=== PATIENT | male | born 1960 | race Caucasian/White ===

== ENCOUNTER 2018-02-14 22:05 | Observation (INO) | payer OTHER ==
--- NOTE | 2018-02-14 22:22 | EDPHY ---
H & P Stated Complaint: anxious, sob, concerned about BP Time Seen by Provider: 02/14/18 22:22 HPI/ROS: HPI CHIEF COMPLAINT: Anxiety, high blood pressure, SOB, Some "chest tightness" HISTORY OF PRESENT ILLNESS: This is a 57-year-old male, presents emergency room by private vehicle feeling anxious. He states he suffers from anxiety and panic attacks. Patient presents emergency room stating that he feels very anxious. He has been anxious all day. He did take lorazepam. He denies any chest pain. But states at times he has SOB. Also states at times, but not currently has had some chest tightness. Does complain of some shortness of breath. No pleuritic pain no recent illness no fever. He took his blood pressure tonight noticed that was high in the 160s this concerned him made him more anxious so decided come the emergency room. Patient states he does not typically have hypertension Upon arrival to the emergency room he is more calm. He states he feels better is blood pressure is 130/90. Heart rate 67, pulse ox 96% on room air. He does not have any chest pain or shortness of breath. Past Medical History: Anxiety and panic attacks. Past Surgical History: No recent surgery Social History: Denies drugs alcohol tobacco. Occasional marijuana use. Family History: Denies ROS REVIEW OF SYSTEMS: 10 Systems were reviewed and negative with the exception of the elements mentioned in the history of present illness. Exam Constitutional anxious triage nursing summary reviewed, vital signs reviewed, awake/alert. Eyes normal conjunctivae and sclera, EOMI, PERRLA. HENT normal inspection, atraumatic, moist mucus membranes, no epistaxis, neck supple/ no meningismus, no raccoon eyes. Respiratory clear to auscultation bilaterally, normal breath sounds, no respiratory distress, no wheezing. Cardiovascular rate normal, regular rhythm, no murmur, no edema, distal pulses normal. Gastrointestinal soft, non-tender, no rebound, no guarding, normal bowel sounds, no distension, no pulsatile mass. Genitourinary no CVA tenderness. Musculoskeletal no midline vertebral tenderness, full range of motion, no calf swelling, no tenderness of extremities, no meningismus, good pulses, neurovascularly intact. Skin pink, warm, & dry, no rash, skin atraumatic. Neurologic awake, alert and oriented x 3, AAOx3, moves all 4 extremities equally, motor intact, sensory intact, CN II-XII intact, normal cerebellar, normal vision, normal speech. Psychiatric anxious Heme/Lymph/Immune no lymphadenopathy. Differential Diagnosis: Includes but is not limited to in a particular order acute anxiety, panic attack, electrolyte disturbance, dehydration, pneumonia, pneumothorax, CHF, hypertensive urgency Medical Decision Making: Plan for this patient IV establishment, IV fluid bolus , IV Ativan for anxiety, EKG basic blood work chest x-ray re-evaluate. Troponin. Re-evaluation: EKG interpretation by me on record in [facility] system. Impression time of EKG 2234 sinus rhythm rate of 67 I do not appreciate acute ischemia. EKG was reading minimal ST elevation in inferior leads which I disagree with. Patient does not have chest pain. EKG interpretation by me on record in [facility] system. Impression time of EKG 2253: Sinus rhythm rate of 66, no acute ischemia. Minimal ST elevation inferior leads which again I disagree with. I had Dr. Nichols, reviewed these EKGs. The patient does not have any chest pain. He has reviewed these EKGs in feels that this is not an acute ischemic event. No ST elevation. EKG interpretation by me on record in [facility] system. Impression time of EKG 2309 sinus rhythm rate of 68 without any acute ischemia. Troponin noted to be-0.00. ED x-ray chest one view negative for acute cardiopulmonary disease. A 2nd troponin 0.00. Third EKG perform time of EKG 2:52 a.m., sinus rhythm 53, No significant St elevation, possible very chalo < 0.5 mm lead 2. Very subtle. No other acute ischemic change. These EKGs have been reviewed by Dr. Nichols, would not activate cardiac catheterization. Does not feel this is ST elevation. Plan for hospital admission observation echo/stress overnight. I have asked the hospitalist service Dr. Garcia to admit for further eval/ obs 0313: This time patient has no chest pain. Resting comfortably. Vital signs stable. Blood pressure improved with Ativan. 0313: Patient resting comfortably chest pain-free. Source: Patient - Personal History Current Tetanus Diphtheria and Acellular Pertussis (TDAP): Unsure - Medical/Surgical History Hx Asthma: No Hx Chronic Respiratory Disease: No Hx Diabetes: No Hx Cardiac Disease: No Hx Renal Disease: No Hx Cirrhosis: No Hx Alcoholism: No Hx HIV/AIDS: No Hx Splenectomy or Spleen Trauma: No Other PMH: anxiety - Social History Smoking Status: Never smoked Constitutional: Initial Vital Signs Temperature (C) 36.7 C 02/14/18 22:09 Heart Rate 92 02/14/18 22:09 Respiratory Rate 20 02/14/18 22:09 Blood Pressure 170/105 H 02/14/18 22:09 O2 Sat (%) 98 02/14/18 22:09 O2 Delivery Mode Room Air Allergies/Adverse Reactions: No Known Allergies Allergy (Unverified 02/14/18 22:08) Home Medications: Medication Instructions Recorded LORazepam [Ativan (*)] 0 mg PO Q6-8PRN PRN 09/15/14 Sertraline HCl 09/15/14 Medical Decision Making - Diagnostics Imaging Results: Imaging Impressions Chest X-Ray 02/14/18 22:31 Impression: 1. No active cardiopulmonary disease seen. - Data Points Laboratory Results: Laboratory Results 02/14/18 22:39 02/14/18 22:39 02/15/18 02/14/18 02/14/18 02:46 22:43 22:39 WBC RBC Hgb Hct MCV MCH MCHC RDW Plt Count MPV Neut % (Auto) Lymph % (Auto) [place] % (Auto) Eos % (Auto) Baso % (Auto) Nucleat RBC Rel Count Absolute Neuts (auto) Absolute Lymphs (auto) Absolute Monos (auto) Absolute Eos (auto) Absolute Basos (auto) Absolute Nucleated RBC Immature Gran % Immature Gran # Sodium 136 mEq/L mEq/L (135-145) Potassium 3.9 mEq/L mEq/L (3.3-5.0) Chloride 104 mEq/L mEq/L (97-110) Carbon Dioxide 22 mEq/l mEq/l (22-31) Anion Gap 10 mEq/L mEq/L (6-14) BUN 18 mg/dL mg/dL (7-23) Creatinine 1.1 mg/dL mg/dL (0.7-1.3) Estimated GFR > 60 Glucose 104 mg/dL H mg/dL (70-100) Calcium 9.0 mg/dL mg/dL (8.5-10.4) Magnesium 2.0 mg/dL mg/dL (1.6-2.3) Total Bilirubin 1.0 mg/dL mg/dL (0.1-1.4) Conjugated Bilirubin 0.2 mg/dL mg/dL (0.0-0.5) Unconjugated Bilirubin 0.8 mg/dL mg/dL (0.0-1.1) AST 22 IU/L IU/L (17-59) ALT 30 IU/L IU/L (21-72) Alkaline Phosphatase 78 IU/L IU/L (38-126) POC Troponin I 0.00 ng/mL ng/mL 0.00 ng/mL ng/mL (0.00-0.08) (0.00-0.08) NT-Pro-B Natriuret Pep 103 pg/mL pg/mL (0-125) Total Protein 7.1 g/dL g/dL (6.3-8.2) Albumin 4.3 g/dL g/dL (3.5-5.0) Lipase 86 IU/L IU/L (23-300) 02/14/18 22:39 WBC 4.38 10^3/uL 10^3/uL (3.80-9.50) RBC 5.38 10^6/uL 10^6/uL (4.40-6.38) Hgb 16.0 g/dL g/dL (13.7-17.5) Hct 44.8 % % (40.0-51.0) MCV 83.3 fL fL (81.5-99.8) MCH 29.7 pg pg (27.9-34.1) MCHC 35.7 g/dL g/dL (32.4-36.7) RDW 12.2 % % (11.5-15.2) Plt Count 183 10^3/uL 10^3/uL (150-400) MPV 9.7 fL fL (8.7-11.7) Neut % (Auto) 53.7 % % (39.3-74.2) Lymph % (Auto) 30.6 % % (15.0-45.0) [place] % (Auto) 10.7 % % (4.5-13.0) Eos % (Auto) 3.7 % % (0.6-7.6) Baso % (Auto) 1.1 % % (0.3-1.7) Nucleat RBC Rel Count 0.0 % % (0.0-0.2) Absolute Neuts (auto) 2.35 10^3/uL 10^3/uL (1.70-6.50) Absolute Lymphs (auto) 1.34 10^3/uL 10^3/uL (1.00-3.00) Absolute Monos (auto) 0.47 10^3/uL 10^3/uL (0.30-0.80) Absolute Eos (auto) 0.16 10^3/uL 10^3/uL (0.03-0.40) Absolute Basos (auto) 0.05 10^3/uL 10^3/uL (0.02-0.10) Absolute Nucleated RBC 0.00 10^3/uL 10^3/uL (0-0.01) Immature Gran % 0.2 % % (0.0-1.1) Immature Gran # 0.01 10^3/uL 10^3/uL (0.00-0.10) Sodium Potassium Chloride Carbon Dioxide Anion Gap BUN Creatinine Estimated GFR Glucose Calcium Magnesium Total Bilirubin Conjugated Bilirubin Unconjugated Bilirubin AST ALT Alkaline Phosphatase POC Troponin I NT-Pro-B Natriuret Pep Total Protein Albumin Lipase Medications Given: Discontinued Medications Aspirin Buffered (Aspirin Ec) 325 mg PO ONCE ONE Stop: 02/15/18 03:17 Last Admin: 02/15/18 03:26 Dose: 325 mg Sodium Chloride (Ns) 1,000 mls @ 0 mls/hr IV EDNOW ONE; Wide Open PRN Reason: Protocol Stop: 02/14/18 22:32 Last Admin: 02/14/18 22:40 Dose: 1,000 mls Lorazepam (Ativan Injection) 1 mg IVP EDNOW ONE Stop: 02/14/18 22:35 Last Admin: 02/14/18 22:56 Dose: 1 mg Point of Care Test Results: Chemistry 02/15/18 02/14/18 02:46 22:43 POC Troponin I 0.00 ng/mL ng/mL 0.00 ng/mL ng/mL (0.00-0.08) (0.00-0.08) Departure - Departure Disposition: [facility] Inpatient Acute Clinical Impression: Anxiety attack, Abnormal EKG, Chest tightness Condition: Good
[2018-02-14] MEDS ORDERED: NS 1,000 ML IV ONE (22:31)
[2018-02-14] MEDS ORDERED: LORazepam 2 MG/ML INJ IVP ONE (22:34)
[2018-02-14 22:50] LABS: PLATELET COUNT 183 10^3/uL (150-400)
[2018-02-15] MEDS ORDERED: ONDANSETRON DISINTEGRATING 4 MG TAB PO PRN (03:13)
[2018-02-15] MEDS ORDERED: ONDANSETRON 4 MG/2 ML VIAL IVP PRN (03:13)
[2018-02-15] MEDS ORDERED: ACETAMINOPHEN 325 MG TAB PO PRN (03:13)
[2018-02-15] MEDS ORDERED: ASPIRIN EC 325 MG TAB PO ONE (03:16)
--- NOTE | 2018-02-15 04:58 | PDGENHP ---
History and Physical - Chief Complaint Anxiety, chest pressure - History of Present Illness 57 yo M w/ hx of anxiety presents with anxiety and chest pressure. The patient has a long history of anxiety and panic disorder. Today he felt like he was having a panic attack and took some lorazepam, as usual. However, throughout most of the day, he also noticed a vague, central chest pressure. As a result he came in to the ED. In the ED his evaluation has been mostly unremarkable. However, he does have a mild abnormality on his ECG. ECG demonstrates very subtle ST changes in inferior leads. He is currently chest pain free. He is being admitted for further cardiac evaluation. Of note, he underwent a cardiac evaluation in 2010 in the setting of panic attacks that was normal. Case discussed with ED physician Dr. Wheeler; records reviewed and summarized above. History Information - Allergies/Home Medication List Allergies/Adverse Reactions: No Known Allergies Allergy (Unverified 02/14/18 22:08) Home Medications: LORazepam [Ativan (*)] 0 mg PO Q6-8PRN PRN 09/15/14 [Last Taken Unknown] Sertraline HCl 09/15/14 [Last Taken Unknown] I have personally reviewed and updated: family history, medical history - Past Medical History Additional medical history: Anxiety - Surgical History Reports: no pertinent surgical hx - Family History Negative for: CAD - Social History Smoking Status: Never smoked Review of Systems Review of Systems: ROS: 10pt was reviewed & negative except for what was stated in HPI & below Physical Exam Physical Exam: Temp Pulse Resp BP Pulse Ox 36.8 C 63 16 133/85 H 98 02/15/18 04:15 02/15/18 04:15 02/15/18 04:15 02/15/18 04:15 02/15/18 04:15 Constitutional: no apparent distress, appears nourished Eyes: PERRL, EOMI Ears, Nose, Mouth, Throat: moist mucous membranes, no oral mucosal ulcers Cardiovascular: regular rate and rhythym, no murmur, rub, or gallop Respiratory: no respiratory distress, clear to auscultation Gastrointestinal: normoactive bowel sounds, soft, non-tender abdomen Skin: warm, normal color Musculoskeletal: full muscle strength, no muscle tenderness Neurologic: AAOx3, CN II-XII Intact Psychiatric: interacting appropriately, not anxious Lab Data & Imaging Review 02/14/18 22:39 02/14/18 22:39 WBC 4.38 10^3/uL (3.80-9.50) 02/14/18 22:39 RBC 5.38 10^6/uL (4.40-6.38) 02/14/18 22:39 Hgb 16.0 g/dL (13.7-17.5) 02/14/18 22:39 Hct 44.8 % (40.0-51.0) 02/14/18 22:39 MCV 83.3 fL (81.5-99.8) 02/14/18 22:39 MCH 29.7 pg (27.9-34.1) 02/14/18 22:39 MCHC 35.7 g/dL (32.4-36.7) 02/14/18 22:39 RDW 12.2 % (11.5-15.2) 02/14/18 22:39 Plt Count 183 10^3/uL (150-400) 02/14/18 22:39 MPV 9.7 fL (8.7-11.7) 02/14/18 22:39 Neut % (Auto) 53.7 % (39.3-74.2) 02/14/18 22:39 Lymph % (Auto) 30.6 % (15.0-45.0) 02/14/18 22:39 [place] % (Auto) 10.7 % (4.5-13.0) 02/14/18 22:39 Eos % (Auto) 3.7 % (0.6-7.6) 02/14/18 22:39 Baso % (Auto) 1.1 % (0.3-1.7) 02/14/18 22:39 Nucleat RBC Rel Count 0.0 % (0.0-0.2) 02/14/18 22:39 Absolute Neuts (auto) 2.35 10^3/uL (1.70-6.50) 02/14/18 22:39 Absolute Lymphs (auto) 1.34 10^3/uL (1.00-3.00) 02/14/18 22:39 Absolute Monos (auto) 0.47 10^3/uL (0.30-0.80) 02/14/18 22:39 Absolute Eos (auto) 0.16 10^3/uL (0.03-0.40) 02/14/18 22:39 Absolute Basos (auto) 0.05 10^3/uL (0.02-0.10) 02/14/18 22:39 Absolute Nucleated RBC 0.00 10^3/uL (0-0.01) 02/14/18 22:39 Immature Gran % 0.2 % (0.0-1.1) 02/14/18 22:39 Immature Gran # 0.01 10^3/uL (0.00-0.10) 02/14/18 22:39 Sodium 136 mEq/L (135-145) 02/14/18 22:39 Potassium 3.9 mEq/L (3.3-5.0) 02/14/18 22:39 Chloride 104 mEq/L (97-110) 02/14/18 22:39 Carbon Dioxide 22 mEq/l (22-31) 02/14/18 22:39 Anion Gap 10 mEq/L (6-14) 02/14/18 22:39 BUN 18 mg/dL (7-23) 02/14/18 22:39 Creatinine 1.1 mg/dL (0.7-1.3) 02/14/18 22:39 Estimated GFR > 60 02/14/18 22:39 Glucose 104 mg/dL (70-100) H 02/14/18 22:39 Calcium 9.0 mg/dL (8.5-10.4) 02/14/18 22:39 Magnesium 2.0 mg/dL (1.6-2.3) 02/14/18 22:39 Total Bilirubin 1.0 mg/dL (0.1-1.4) 02/14/18 22:39 Conjugated Bilirubin 0.2 mg/dL (0.0-0.5) 02/14/18 22:39 Unconjugated Bilirubin 0.8 mg/dL (0.0-1.1) 02/14/18 22:39 AST 22 IU/L (17-59) 02/14/18 22:39 ALT 30 IU/L (21-72) 02/14/18 22:39 Alkaline Phosphatase 78 IU/L (38-126) 02/14/18 22:39 POC Troponin I 0.00 ng/mL (0.00-0.08) 02/15/18 02:46 NT-Pro-B Natriuret Pep 103 pg/mL (0-125) 02/14/18 22:39 Total Protein 7.1 g/dL (6.3-8.2) 02/14/18 22:39 Albumin 4.3 g/dL (3.5-5.0) 02/14/18 22:39 Lipase 86 IU/L (23-300) 02/14/18 22:39 Imaging Review: Imaging Impressions Chest X-Ray 02/14/18 22:31 Impression: 1. No active cardiopulmonary disease seen. Visualized and Interpreted EKG results: Yes EKG Interpretation: Positive for: normal sinsus rhythm, other (Subtle inferior ST changes) Assessment & Plan Assessment: 57 yo M w/ anxiety presents with anxiety, chest pressure, and mildly abnormal ECG. Plan: 1. Chest pressure - Mild and present throughout the day. ECG (personally reviewed/interpreted) demonstrates mild ST changes in inferior leads. Troponin x2 have been negative. HEART score of 4 denoting need for further investigation. - Observe in PCU - Monitor on telemetry, trend cardiac enzymes - Will order treadmill stress test for further evaluation 2. Anxiety - Difficult to control; on sertraline and lorazepam as outpatient. - Continue pending reconciliation Diet - NPO Code - Full Ppx - LMWH Dispo - Admit under observation status
[2018-02-15 06:03] LABS: PLATELET COUNT 170 10^3/uL (150-400)
--- NOTE | 2018-02-15 06:17 | CPEKG ---
Test Reason : OPEN Blood Pressure : / mmHG Vent. Rate : 068 BPM Atrial Rate : 068 BPM P-R Int : 184 ms QRS Dur : 088 ms QT Int : 406 ms P-R-T Axes : 057 -06 036 degrees QTc Int : 432 ms Sinus rhythm Confirmed by Sly Schmitt ([id number]) on 02/15/2018 6:16:11 AM Referred By: Confirmed By:Sly Schmitt
--- NOTE | 2018-02-15 06:17 | CPEKG ---
Test Reason : OPEN Blood Pressure : / mmHG Vent. Rate : 067 BPM Atrial Rate : 066 BPM P-R Int : 181 ms QRS Dur : 086 ms QT Int : 409 ms P-R-T Axes : 052 -05 032 degrees QTc Int : 432 ms Sinus rhythm Abnormal R-wave progression, early transition ST elevation, consider inferior injury Confirmed by Sly Schmitt ([id number]) on 02/15/2018 6:16:11 AM Referred By: Confirmed By:Sly Schmitt
--- NOTE | 2018-02-15 06:17 | CPEKG ---
Test Reason : OPEN Blood Pressure : / mmHG Vent. Rate : 053 BPM Atrial Rate : 053 BPM P-R Int : 187 ms QRS Dur : 083 ms QT Int : 462 ms P-R-T Axes : 064 -03 037 degrees QTc Int : 434 ms Sinus rhythm Minimal ST elevation, inferior leads Confirmed by Sly Schmitt ([id number]) on 02/15/2018 6:16:12 AM Referred By: Confirmed By:Sly Schmitt
[2018-02-15] MEDS ORDERED: ENOXAPARIN 40 MG/0.4 ML SYR SC SCH (09:00)
[2018-02-15 13:22] VITALS: BP 136/80
[2018-02-15] MEDS ORDERED: LORazepam 0.5 MG TAB PO PRN (13:57)
--- NOTE | 2018-02-15 22:22 | CPR ---
INDICATION FOR PROCEDURE: An episode of chest pressure. PRE: The patient denies having any chest pain, pressure or symptoms suggesting of ischemia. Initial electrocardiogram shows sinus rhythm, normal axis, with no significant ST or T-wave abnormalities. Initial blood pressure 136/86. STRESS: The patient was placed on exercise treadmill, following standard protocol with the following findings: 1. The patient exercised for 8 minutes. 2. 9.1 METS. 3. Heart rate obtained was 161 beats per minute, which was 97% of MPHR. 4. The patient had no chest pain. 5. The patient was noted to have [address] depression in inferior leads, non-equivocal for i schemia. 6. BP response rest 136/86, peak 194/94. 7. The patient was noted to have a single PVC during stress, with no other malignant arrhythmias not ed in all 3 phases of testing. 8. SpO2 remained greater than 90% throughout testing. 9. Testing was stopped due to maximum effort. 10. Vicente treadmill score of 8 places the patient at low cardiovascular risk. RECOVERY: The patient recovered for 5 minutes, during that time heart rate and BP returned back to b aseline. He remained asymptomatic of symptoms suggesting of ischemia, no arrhythmias. IMPRESSION: A 57-year-old male admitted to the hospital for chest pressure, negative troponins, exer cise treadmill testing negative for ischemia, Vicente treadmill score of 8 placing the patient at low ca rdiovascular risk. Results were notified to the hospitalist services. /[id number]/MODL
--- NOTE | 2018-02-16 04:38 | GDS ---
DISCHARGE DIAGNOSES: 1. Chest pain due to anxiety. 2. Negative exercise treadmill test. 3. Transient hypertension due to anxiety. 4. Difficult to control anxiety and panic attacks. HISTORY: The patient is a 57-year-old male with a history of anxiety and panic attacks, who presente d to the emergency room after having a panic attack. Took some lorazepam, but his blood pressure did not come down as he would like, and he noticed some chest pressure, so he was admitted to [facility]. Exercise treadmill test was normal. After the initial elevated blood pressure in the emergency r oom, he had no further elevated blood pressures throughout his observation. I do suspect the high bl ood pressure was due to his anxiety. He recently restarted sertraline and is hoping to wean down on his lorazepam needs on this medication. He was reassured that his cardiovascular status is very good with negative exercise stress testing and no baseline hypertension. DISCHARGE MEDICATIONS: Please see computerized record for full detailed list. There are no new medi cations given at time of hospital discharge. ADDITIONAL DISCHARGE INSTRUCTIONS: Follow up with primary care. Patient seen and examined by me on the day of discharge. /[id number]/MODL
[2018-02-16] MEDS ORDERED: SERTRALINE HCL 50 MG TAB PO SCH (09:00)
== END 2018-02-15 15:05 | disposition home or self-care (01) ==
LOC: F2W 02-15 03:50
PROVIDERS: ADMIT Student in an Organized Health Care Education/Training Program; ATTEND Internal Medicine
DX: R07.89 Other chest pain (principal); F41.0 Panic disorder [episodic paroxysmal anxiety]; R03.0 Elevated blood-pressure reading, without diagnosis of hypertension; E86.0 Dehydration; Z23 Encounter for immunization
CPT/HCPCS: 71045; 90471; 93005; 96361; 96372; 96374; 99285; G0378; 84484-PO; G0008; J1650; J2060